=== PATIENT | male | born 1965 | race African-American/Black ===

== ENCOUNTER 2017-11-11 16:56 | Emergency (ER) | payer OTHER ==
[~2017-11-11] VITALS: Ht 175.3 cm; Wt 108.9 kg
[2017-11-11 17:04] VITALS: BP 122/82
--- NOTE | 2017-11-11 17:24 | Emergency Room Report ---
History of Present Illness General Chief Complaint: Medical Clearance Source: Patient Present Illness HPI 52-year-old male patient presents to ER brought in by police for clearance to be booked. Patient denies acute complains at this time. Denies fever, chest pain, shortness of breath, abdominal pain. Reports history of CHF and diabetes, states that he has been taking his medications, states he normally takes in the morning. Reports that he has medications at home and does not need new medications. Patient does not know the names of all of his medications or the dosages. Allergies: Coded Allergies: No Known Allergies (Unverified , 11/11/17) Patient History Past Medical History: see triage record Reviewed Nursing Documentation: PMH: Agreed; PSxH: Agreed Nursing Documentation-PMH Hx Hypertension: Yes Review of Systems All Other Systems: negative except mentioned in HPI Physical Exam Vital Signs Date Time Temp Pulse Resp B/P (MAP) Pulse Ox O2 Delivery O2 Flow Rate FiO2 11/11/17 17:04 98.2 83 16 122/82 96 Room Air 98.2 Sp02 EP Interpretation: reviewed, normal General Appearance: well appearing, no apparent distress, alert, GCS 15, non- toxic Head: normocephalic, atraumatic Eyes: bilateral eye normal inspection, bilateral eye PERRL ENT: hearing grossly normal, normal pharynx, no angioedema, normal voice, TMs + canals normal, uvula midline, moist mucus membranes Neck: full range of motion Respiratory: lungs clear, normal breath sounds, no rhonchi, no respiratory distress, no accessory muscle use, no wheezing, speaking full sentences Cardiovascular #1: regular rate, rhythm, no edema Cardiovascular #2: 2+ radial (R), 2+ radial (L) Gastrointestinal: non tender, soft, no mass, non-distended, no guarding, no rebound Musculoskeletal: back normal, digits/nails normal, gait/station normal, normal range of motion, non-tender Neurologic: alert, oriented x3, responsive, audit analyst III-XII nml as tested, motor strength/tone normal, sensory intact, cerebellar normal, normal gait, speech normal Psychiatric: mood/affect normal Skin: no rash Medical Decision Making PA Attestation Dr. Portillo is my supervising Physician whom patient management has been discussed with. Diagnostic Impression: Primary Impression: Medical clearance for incarceration ER Course Pt. presents to the ED requesting medical clearance for booking. Multiple differentials considered. Patient Vitals Signs WNL, patient is afebrile. ORDERS: none required at this time, the diagnosis is clinical ER course: Accu-Chek performed, no extreme elevation of glucose, within normal limits. PE benign. No skull depression, lungs clear to auscultation, no abdominal TTP. Patient not suicidal or homicidal at this time. Patient declined need for refill of medications. Reports takes medications in the morning, does not need any medications, can get from home, states he will "be bailed out." Patient in no acute distress, nontoxic appearing, breathing without difficulty. Patient okay for discharged police custody. patient was comfortably, in no acute distress, nontoxic-appearing, speaking normally without difficulty. DISCHARGE: At this time pt. is stable for d/c to police custody. Will provide printed patient care instructions, and any necessary prescriptions. Care plan and follow up instructions have been discussed with the patient prior to discharge - Please note that this Emergency Department Report was dictated using [employer] technology software, occasionally this can lead to erroneous entry secondary to interpretation by the dictation equipment. Last Vital Signs Date Time Temp Pulse Resp B/P (MAP) Pulse Ox O2 Delivery O2 Flow Rate FiO2 11/11/17 17:04 98.2 83 16 122/82 96 Room Air 98.2 Disposition: D/C TO LAW ENF[facility]CEMENT IN [facility]UST Condition: Stable Scripts Unable to Obtain Active Prescriptions or Reported Meds Departure Forms: Long Term Clearance Patient Instructions: Diabetes Mellitus and Food, Heart Failure, [id number] Additional Instructions: Followup with primary care provider in 3 -5 days. Continue take medications as instructed for chronic illnesses. Take medications as directed. Patient questions asked and answered. ER precautions given, patient instructed to return to ER immediately for any new or worsening of symptoms. Matt Mace November 11, 2017 17:24
[2017-11-11 17:33] VITALS: BP 122/82
== END 2017-11-11 17:33 ==
LOC: EMR 17:20
DX: Z02.89 Encounter for other administrative examinations (principal); I10 Essential (primary) hypertension
CPT/HCPCS: 99283